=== PATIENT | male | born 1955 | race Caucasian/White ===

== ENCOUNTER 2020-02-25 21:57 | Emergency (ER) | payer BC, OTHER ==
[2020-02-25 22:05] VITALS: BP 151/79; PULSE 61; TEMP 98; BMI 27.0
[2020-02-25] MEDS ORDERED: predniSONE 20 MG TABLET (UD) PO ONE (22:06)
--- NOTE | 2020-02-25 22:10 | PDOC ---
History of Present Illness - General Chief Complaint: Poison Lyndon,Poison Veena Exposure Stated Complaint: RASH ON L LEG Time Seen by Provider: 02/25/20 22:06 History Source: Patient Exam Limitations: No Limitations - History of Present Illness Initial Comments: 02/25/20 22:08 This is a 64-year-old male who comes in complaining of a rash x3 days. Patient went to the urgent care center and was told to use calamine lotion. Patient has been washing it and he says it has been getting worse. Patient spends a fair amount of time outside and does admit to possible exposure to poison veena. Patient said the rash is very itchy. Allergies: as per nursing notes Past Medical History: none Social history: Lives with family. No smoking. No alcohol. No illicit drugs. Surgical history: None General: No fevers or chills, no weakness, no weight loss HEENT: No change in vision. No sore throat,. No ear pain CardioVascular: no chest discomfort. No shortness of breath Respiratory:No cough, or wheezing. Gastrointestinal: no nausea, vomiting, diarrhea or constipation, No rectal bleeding Genitourinary: No dysuria, hematuria, or frequency Musculoskeletal: No joint or muscle pain or swelling Neurologic: No headache, vertigo, dizziness or loss of consciousness Psychiatric: nor depression Skin: Vesicular rash to posterior left leg Endocrine: no increased thirst or abnormal weight change Allergic: no skin or latex allergy All other systems reviewed and normal GENERAL: The patient is awake, alert, and fully oriented, in no acute distress. HEENT:Head is normal with no signs of trauma. Eyes: Pupils equal, round and reactive to light, Ears, and Throat are normal. Neck is supple. No Lymphadenopathy. EXTREMITIES:atraumatic, Normal range of motion, no edema. Left lower extremity there is a vesicular rash in a pattern consistent with poison veena exposure. NEUROLOGICAL: Normal speech, normal gait. PSYCH: Normal mood, normal affect. SKIN: Warm, Dry, normal turgor, no rashes or lesions noted. Past History - Medical History Allergies/Adverse Reactions: Allergies Allergy/AdvReac Type Severity Reaction Status Date / Time No Known Allergies Allergy Verified 02/25/20 21:59 Home Medications: Ambulatory Orders Losartan Potassium 100 mg PO DAILY 02/25/20 Methylprednisolone [Medrol Dose Bonifacio] 4 mg PO ASDIR #21 tablet 02/25/20 COPD: No HTN: Yes - Immunization History Immunization Up to Date: No - Psycho-Social/Smoking History Smoking History: Never smoked - Substance Abuse Hx (Audit-C & DAST Scrn) How often the patient has a drink containing alcohol: Never Score: In Men: 4 or > Positive; In Women: 3 or > Positive: 0 Screen Result (Pos requires Nsg. Audit-10AR): Negative In the last yr the pt used illegal drug/Rx for NonMed reason: No Score: Yes response is considered Positive: 0 Screen Result (Positive result requires Nsg. DAST-10): Negative *Physical Exam - Vital Signs Last Vital Signs Temp Pulse Resp BP Pulse Ox 98.0 F 61 14 151/79 99 02/25/20 21:59 02/25/20 21:59 02/25/20 21:59 02/25/20 21:59 02/25/20 21:59 Discharge - Discharge Information Problems reviewed: Yes Clinical Impression/Diagnosis: Poison veena dermatitis Disposition: HOME - Admission No - Follow up/Referral - Patient Discharge Instructions Additional Instructions: Get the prescription filled for the Medrol Dosepak and take as per the pack instructions if after you finish the pack the rash has not resolved I have given you 1 refill which you can take as well. Return to the emergency department immediately with ANY new, persistent or worsening symptoms. Continue any medications as previously prescribed by your physician. You should follow up with your primary doctor as soon as possible regarding today's emergency department visit. . Please make sure your doctor reviews the results of your emergency evaluation. Thank you for coming to the Emergency Department today for your care. It was a pleasure to see you today. Please note that your evaluation is INCOMPLETE until you follow-up with your doctor. - Post Discharge Activity
[2020-02-25] MEDS ORDERED: predniSONE 20 MG TABLET (UD) ONE (22:12)
== END 2020-02-25 22:19 | disposition home or self-care (01) ==
LOC: FER 21:57
DX: L23.7 Allergic contact dermatitis due to plants, except food (principal)
CPT/HCPCS: 99283-25